=== PATIENT | male | born 1965 | race Asian ===

== ENCOUNTER 2021-12-21 05:21 | Day surgery (SDC) | payer OTHER ==
[~2021-12-21] VITALS: Ht 167.6 cm; Wt 89.5 kg
[~2021-12-21 05:21] MED LIST: ALLO-97 PO; AMLO10TA55 PO; ATOR40TA28 PO; METF-1211 PO
[2021-12-21] MEDS ORDERED: ROCURONIUM BROMIDE 10 MG/ML 5 ML VIAL IVP ONE (05:22)
[2021-12-21] MEDS ORDERED: ONDANSETRON HCL 4 MG/2 ML VIAL IVP ONE (05:22)
[2021-12-21] MEDS ORDERED: FentaNYL CITRATE PF 100 MCG/2 ML VIAL IM ONE (05:22)
[2021-12-21] MEDS ORDERED: MIDAZOLAM HCL 2 MG/2 ML VIAL IVP ONE (05:22)
[2021-12-21] MEDS ORDERED: PROPOFOL 1% 20 ML VIAL IVP ONE (05:22)
[2021-12-21] MEDS ORDERED: DEXAMETHASONE SOD PHOS 4 MG/ML VIAL IVP ONE (05:22)
[2021-12-21] MEDS ORDERED: SODIUM CHLORIDE 0.9% 1,000 ML IV ONE ×2 (05:30)
[2021-12-21] MEDS ORDERED: SODIUM CHLORIDE 0.9% 1,000 ML ONE (05:48)
[2021-12-21 05:54] LABS: COVID AG,FIA SOURCE NASAL SWAB
[2021-12-21] MEDS ORDERED: BUPIVACAINE 0.25%/EPI 1:200,000/PF 10 ML VIAL ONE (07:52)
[2021-12-21 08:01] LABS: GLUCOMETER DEV NAME(LOC) SDS.; GLUCOSE,POINT OF CARE 136 MG/DL (70-110)
[2021-12-21] MEDS ORDERED: SUGAMMADEX SODIUM 200 MG/2 ML VIAL IVP ONE (08:06)
[2021-12-21] MEDS ORDERED: GELATIN SPONGE,ABSORBABLE 50 MM TP ONE (08:12)
[2021-12-21] MEDS ORDERED: HYDROmorphone 2 MG/ML VIAL IVP PRN (08:30)
[2021-12-21] MEDS ORDERED: FentaNYL CITRATE PF 100 MCG/2 ML VIAL IVP PRN (08:30)
[2021-12-21] MEDS ORDERED: ACETAMINOPHEN 1000 MG/ISO-OSM 100 ML IV ONE ×2 (08:30→08:52)
[2021-12-21] MEDS ORDERED: OXYGEN THERAPY IH SCH (20:00)
== END 2021-12-21 10:30 | disposition home or self-care (01) ==
LOC: SURGERY 05:21
PROVIDERS: ATTEND Surgery
DX: K57.90 Diverticulosis of intestine, part unspecified, without perforation or abscess without bleeding (principal); K64.5 Perianal venous thrombosis; E11.9 Type 2 diabetes mellitus without complications; I10 Essential (primary) hypertension; K62.6 Ulcer of anus and rectum; K64.8 Other hemorrhoids; K57.30 Diverticulosis of large intestine without perforation or abscess without bleeding; Z79.899 Other long term (current) drug therapy; Z98.890 Other specified postprocedural states
CPT/HCPCS: 46255; 45378; 87426; 82962; C9803; J3490 ×2; J2704; J1100; J3010; J2250; J2405; Q9967; J7030; J0131